=== PATIENT | female | born 1935 | race Caucasian/White ===

== ENCOUNTER → 2018-03-21 | Outpatient (CLI) | payer MEDICARE, OTHER ==
[~2018-03-21] MED LIST: Advil200 M1 PO; CIPR500 PO; Esgic Tablet1 EACH PO; HYDR1TAB94 PO; METR500 PO; OMEP20ER PO; PROM25 PO; Pravachol40 MG PO; SERT50; SERT50 PO; [UNRECOGNIZED DRUG - REMARK]
[2018-03-21 12:26] LABS: Adenovirus F 40/41 Not Detected (NOT DETECT); Astrovirus Not Detected (NOT DETECT); Campylobacter Sp Not Detected (NOT DETECT); Cryptosporidium Not Detected (NOT DETECT); Cyclospora Cayetanensis Not Detected (NOT DETECT); E. Coli O157 Not Detected (NOT DETECT); Entamoeba Histolytica Not Detected (NOT DETECT); Enteroaggregative E. coli-EAEC Not Detected (NOT DETECT); Enteropathogenic E. coli-EPEC Not Detected (NOT DETECT); Enterotoxigenic E. coli-ETEC Not Detected (NOT DETECT); Giardia Lamblia Not Detected (NOT DETECT); Norovirus GI/GII Not Detected (NOT DETECT); Plesiomonas Shigelloides Not Detected (NOT DETECT); Rotavirus A Not Detected (NOT DETECT); Salmonella Sp Not Detected (NOT DETECT); Sapovirus Not Detected (NOT DETECT); Shiga Toxin-prod E. coli-STEC Not Detected (NOT DETECT); Shigella/Enteroin E. coli-EIEC Not Detected (NOT DETECT); Vibrio Cholerae Not Detected (NOT DETECT); Vibrio Sp Not Detected (NOT DETECT); Yersinia Enterocolitica Not Detected (NOT DETECT)
== END | disposition home or self-care (01) ==
LOC: LAB EV 08:50
PROVIDERS: Student in an Organized Health Care Education/Training Program
DX: K52.9 Noninfective gastroenteritis and colitis, unspecified (principal); Z85.038 Personal history of other malignant neoplasm of large intestine
CPT/HCPCS: 87507

== ENCOUNTER → 2018-09-16 | Outpatient (CLI) | payer MEDICARE, OTHER ==
[~2018-09-16] MED LIST changes: +Pravastatin Sod40 MG PO
[2018-09-16 14:49] LABS: BASOPHILS ABSOLUTE AUTO 0.03 K/mm3 (0.00-0.23); BASOPHILS PERCENT AUTO 1 % (0-2); EOSINOPHILS ABSOLUTE AUTO 0.13 K/mm3 (0.00-0.68); EOSINOPHILS PERCENT AUTO 2 % (0-6); Hematocrit 40.5 % (33.0-51.0); Hemoglobin 13.5 g/dL (11.5-16.0); IMMATURE GRAN ABSOLUTE AUTO 0.02 K/mm3 (0.00-0.10); IMMATURE GRAN PERCENT AUTO 0 % (0-1); LYMPHOCYTES ABSOLUTE AUTO 2.03 K/mm3 (0.84-5.20); LYMPHOCYTES PERCENT AUTO 34 % (21-46); MONOCYTES ABSOLUTE AUTO 0.71 K/mm3 (0.16-1.47); MONOCYTES PERCENT AUTO 12 % (4-13); Mean Corpuscular HGB 29.8 pg (26.0-34.0); Mean Corpuscular HGB Conc 33.3 g/dL (31.5-36.5); Mean Corpuscular Volume 89 fL (80-100); Mean Platelet Volume 10.3 fL (9.1-12.4); NEUTROPHILS ABSOLUTE AUTO 3.05 K/mm3 (1.96-9.15); NEUTROPHILS PERCENT AUTO 51 % (41-73); Platelet Count 264 K/mm3 (150-400); RDW Standard Deviation 42.5 fL (35.1-46.3); Red Blood Cell Count 4.53 M/mm3 (3.80-5.20); White Blood Cell Count 5.97 K/mm3 (4.00-11.30)
[2018-09-16 14:56] LABS: Bun/Creatinine Ratio 11.8 (12.0-20.0); Calcium, Blood 8.9 mg/dL (8.5-10.1); Creatinine, Blood 1.02 mg/dL (0.40-1.00); Potassium, Blood 4.4 mmol/L (3.5-5.5)
[2018-09-16 16:57] LABS: Albumin, Blood 3.1 g/dL (3.4-5.0); Albumin/Globulin Ratio 0.8 (0.8-1.8); Bilirubin, Total 0.5 mg/dL (0.1-1.0); Total Protein, Blood 7.1 g/dL (6.4-8.2)
== END | disposition home or self-care (01) ==
LOC: LAB SHORT 14:46 → LAB EV 14:46
PROVIDERS: Physician Assistant
DX: R10.31 Right lower quadrant pain (principal); D72.829 Elevated white blood cell count, unspecified; R82.79 Other abnormal findings on microbiological examination of urine
CPT/HCPCS: 80053; 85025; 87086

== ENCOUNTER → 2018-10-07 | Outpatient (CLI) | payer MEDICARE, OTHER ==
[2018-10-07 12:08] LABS: BASOPHILS ABSOLUTE AUTO 0.04 K/mm3 (0.00-0.23); BASOPHILS PERCENT AUTO 1 % (0-2); EOSINOPHILS ABSOLUTE AUTO 0.13 K/mm3 (0.00-0.68); EOSINOPHILS PERCENT AUTO 3 % (0-6); Hematocrit 40.3 % (33.0-51.0); Hemoglobin 13.2 g/dL (11.5-16.0); IMMATURE GRAN ABSOLUTE AUTO 0.02 K/mm3 (0.00-0.10); IMMATURE GRAN PERCENT AUTO 0 % (0-1); LYMPHOCYTES PERCENT AUTO 31 % (21-46); MONOCYTES ABSOLUTE AUTO 0.58 K/mm3 (0.16-1.47); MONOCYTES PERCENT AUTO 12 % (4-13); Mean Corpuscular HGB 29.1 pg (26.0-34.0); Mean Corpuscular HGB Conc 32.8 g/dL (31.5-36.5); Mean Corpuscular Volume 89 fL (80-100); Mean Platelet Volume 10.5 fL (9.1-12.4); NEUTROPHILS ABSOLUTE AUTO 2.51 K/mm3 (1.96-9.15); NEUTROPHILS PERCENT AUTO 53 % (41-73); Platelet Count 256 K/mm3 (150-400); RDW Coefficient Variation 12.6 % (11.7-14.2); RDW Standard Deviation 41.1 fL (35.1-46.3); Red Blood Cell Count 4.54 M/mm3 (3.80-5.20); White Blood Cell Count 4.78 K/mm3 (4.00-11.30)
[2018-10-07 12:40] LABS: Alanine Aminotransfer (ALT/SGP 13 U/L (12-78); Albumin, Blood 3.3 g/dL (3.4-5.0); Albumin/Globulin Ratio 0.8 (0.8-1.8); Alk Phos 82 U/L (40-126); Anion Gap 9 mmol/L (6-16); Aspartate Aminotrans (AST/SGOT 18 U/L (12-37); Bilirubin, Total 0.4 mg/dL (0.1-1.0); Blood Urea Nitrogen 10 mg/dL (8-24); Bun/Creatinine Ratio 21.7 (12.0-20.0); CO2, Blood 24 mmol/L (21-32); Calcium, Blood 8.6 mg/dL (8.5-10.1); Chloride, Blood 104 mmol/L (98-108); Creatinine, Blood 0.46 mg/dL (0.40-1.00); Globulin, Blood 3.9 g/dL (2.2-4.0); Glomerular Filtration Rate >60 (60-); Glucose, Blood 87 mg/dL (70-99); Potassium, Blood 4.3 mmol/L (3.5-5.5); Sodium, Blood 137 mmol/L (136-145); Total Protein, Blood 7.2 g/dL (6.4-8.2)
== END ==
LOC: LAB EV 12:03 → LAB SHORT 12:03
PROVIDERS: Emergency Medicine
DX: R10.9 Unspecified abdominal pain (principal); N39.0 Urinary tract infection, site not specified
CPT/HCPCS: 80053; 85025; 87086

== ENCOUNTER 2019-01-28 13:02 | Day surgery (SDC) | payer MEDICARE, OTHER ==
[~2019-01-28] VITALS: Ht 152.4 cm; Wt 51.7 kg
== END 2019-01-28 16:52 | disposition home or self-care (01) ==
LOC: ORSCSDS 13:02
DX: K21.0 Gastro-esophageal reflux disease with esophagitis (principal); R19.7 Diarrhea, unspecified; R11.2 Nausea with vomiting, unspecified; Z85.038 Personal history of other malignant neoplasm of large intestine; R63.4 Abnormal weight loss; E78.5 Hyperlipidemia, unspecified; K57.30 Diverticulosis of large intestine without perforation or abscess without bleeding; K64.8 Other hemorrhoids
CPT/HCPCS: 88305; 88312; J2405; J2704; J7120

== ENCOUNTER 2019-02-12 05:31 | Inpatient (IN) | payer MEDICARE, OTHER ==
[~2019-02-12] VITALS: Ht 152.4 cm; Wt 59.4 kg
[2019-02-12] MEDS ORDERED: OMEPRAZOLE MAGN20 M1 PO (06:02)
[2019-02-12] MEDS ORDERED: PRED20 PO (06:03)
[2019-02-12] MEDS ORDERED: MAGNESIUM400 M1 PO (06:03)
[2019-02-12 06:35] LABS: Source, Urine Clean Catch
[2019-02-12 06:36] LABS: BASOPHILS ABSOLUTE AUTO 0.01 K/mm3 (0.00-0.23); BASOPHILS PERCENT AUTO 0 % (0-2); EOSINOPHILS PERCENT AUTO 0 % (0-6); Hematocrit 41.8 % (33.0-51.0); Hemoglobin 12.8 g/dL (11.5-16.0); IMMATURE GRAN ABSOLUTE AUTO 0.04 K/mm3 (0.00-0.10); IMMATURE GRAN PERCENT AUTO 0 % (0-1); LYMPHOCYTES ABSOLUTE AUTO 1.14 K/mm3 (0.84-5.20); LYMPHOCYTES PERCENT AUTO 10 % (21-46); MONOCYTES ABSOLUTE AUTO 0.64 K/mm3 (0.16-1.47); MONOCYTES PERCENT AUTO 6 % (4-13); Mean Corpuscular HGB Conc 30.6 g/dL (31.5-36.5); Mean Corpuscular Volume 82 fL (80-100); Mean Platelet Volume 9.9 fL (9.1-12.4); NEUTROPHILS ABSOLUTE AUTO 9.51 K/mm3 (1.96-9.15); NEUTROPHILS PERCENT AUTO 84 % (41-73); Platelet Count 652 K/mm3 (150-400); RDW Standard Deviation 44.8 fL (35.1-46.3); Red Blood Cell Count 5.11 M/mm3 (3.80-5.20); White Blood Cell Count 11.34 K/mm3 (4.00-11.30)
[2019-02-12 06:37] LABS: Blood, Urine 1+ (Neg); Glucose Qualitative, Urine Neg (Neg); Ketones, Urine Neg (Neg); Leukocyte Esterase, Urine 2+ (Neg); Nitrite, Urine Neg (Neg); Protein, Urine 2+ (Neg); Specific Gravity, Urine 1.025 (1.003-1.022); Urobilinogen, Urine NORM (Normal)
[2019-02-12 06:48] LABS: Appearance, Urine Hazy (Clear); Bilirubin, Urine 1+ (Neg); Color, Urine Yellow (P-Yellow)
[2019-02-12 06:51] LABS: Alanine Aminotransfer (ALT/SGP 19 U/L (12-78); Albumin, Blood 2.8 g/dL (3.4-5.0); Albumin/Globulin Ratio 0.7 (0.8-1.8); Alk Phos 66 U/L (50-136); Anion Gap 6 mmol/L (6-16); Aspartate Aminotrans (AST/SGOT 12 U/L (12-37); Bilirubin, Total 0.3 mg/dL (0.1-1.0); Blood Urea Nitrogen 30 mg/dL (8-24); CO2, Blood 31 mmol/L (21-32); Calcium, Blood 8.9 mg/dL (8.5-10.1); Chloride, Blood 104 mmol/L (98-108); Creatinine, Blood 0.63 mg/dL (0.40-1.00); Globulin, Blood 4.2 g/dL (2.2-4.0); Glomerular Filtration Rate >60 (60-); Glucose, Blood 138 mg/dL (70-99); Potassium, Blood 2.7 mmol/L (3.5-5.5); Sodium, Blood 141 mmol/L (136-145); Troponin I <0.015 ng/mL (0.000-0.040)
[2019-02-12 06:52] LABS: Bacteria Few /hpf; Red Blood Cells, Urine 0-2 /hpf (0-2); Squamous Epithelial Cells Few /hpf (Few)
[2019-02-12 06:53] LABS: Calcium Oxalate Crystals Many /hpf; Transitional Epithelial Cells Rare /hpf (0-Rare)
--- NOTE | 2019-02-12 10:20 | NUR ---
ADVISED PATIENT CAN NOT TAKE P.O. PILLS AT THIS TIME SHE FEELS LIKE SHE WILL VOMIT THEM. PER DR. CORCORAN DILAUDID 0.2MG IV ONCE.STS GI TO SEE. ORDER PLACED AND RN WILL CALL.
--- NOTE | 2019-02-12 10:41 | NUR ---
ADVISED US WAS DONE AND PER TECH PROBABLY NOT ENOUGH FOR THERAPEUTIC PARA, BUT COULD DO DIAGNOSTIC. STS WILL THINK ABOUT IT. NO NEW ORDERS.
--- NOTE | 2019-02-12 16:13 | NUR ---
ADMITTED TO ROOM THIS MORNING. ALERT AND ORIENTED. USUALLY UNABLE TO GET TO BSC DUE TO DIARRHEA. INITIALLY C/O BACK AND ABD PAIN AND SAID COULD NOT TAKE ANY PILLS BECAUSE THOUGHT SHE WOULD VOMIT THEM. MEDS CHANGED TO IV DILAUDID ONCE AND HAS NOT ASKED FOR IT AT THIS TIME. MEDICATED ONCE FOR NAUSEA. HAS HAD NO VOMITING ON THIS FLOOR. PLEASANT. BED IN LOW POSITION. IV'S X 2 PATENT. AWAITING . HAS HAD EGD AND COLONOSCOPY PRIOR TO ADMIT. ABLE TO MAKE NEEDS KNOWN. UNLABORED RESPIRATIONS. WCTM.
[2019-02-13 04:57] LABS: BASOPHILS ABSOLUTE AUTO 0.01 K/mm3 (0.00-0.23); BASOPHILS PERCENT AUTO 0 % (0-2); EOSINOPHILS PERCENT AUTO 1 % (0-6); Hematocrit 32.7 % (33.0-51.0); Hemoglobin 9.8 g/dL (11.5-16.0); IMMATURE GRAN ABSOLUTE AUTO 0.03 K/mm3 (0.00-0.10); IMMATURE GRAN PERCENT AUTO 0 % (0-1); LYMPHOCYTES ABSOLUTE AUTO 1.73 K/mm3 (0.84-5.20); LYMPHOCYTES PERCENT AUTO 21 % (21-46); MONOCYTES ABSOLUTE AUTO 0.82 K/mm3 (0.16-1.47); MONOCYTES PERCENT AUTO 10 % (4-13); Mean Corpuscular HGB 24.6 pg (26.0-34.0); Mean Corpuscular Volume 82 fL (80-100); Mean Platelet Volume 9.9 fL (9.1-12.4); NEUTROPHILS ABSOLUTE AUTO 5.47 K/mm3 (1.96-9.15); NEUTROPHILS PERCENT AUTO 67 % (41-73); Platelet Count 492 K/mm3 (150-400); RDW Coefficient Variation 15.3 % (11.7-14.2); RDW Standard Deviation 45.7 fL (35.1-46.3); Red Blood Cell Count 3.98 M/mm3 (3.80-5.20); White Blood Cell Count 8.16 K/mm3 (4.00-11.30)
[2019-02-13 05:23] LABS: Alanine Aminotransfer (ALT/SGP 13 U/L (12-78); Albumin, Blood 2.1 g/dL (3.4-5.0); Albumin/Globulin Ratio 0.7 (0.8-1.8); Alk Phos 46 U/L (50-136); Anion Gap 3 mmol/L (6-16); Aspartate Aminotrans (AST/SGOT 9 U/L (12-37); Bilirubin, Total 0.4 mg/dL (0.1-1.0); Blood Urea Nitrogen 21 mg/dL (8-24); Bun/Creatinine Ratio 32.5 (12.0-20.0); CO2, Blood 29 mmol/L (21-32); Calcium, Blood 8.1 mg/dL (8.5-10.1); Chloride, Blood 114 mmol/L (98-108); Creatinine, Blood 0.65 mg/dL (0.40-1.00); Globulin, Blood 3.2 g/dL (2.2-4.0); Glomerular Filtration Rate >60 (60-); Glucose, Blood 86 mg/dL (70-99); Potassium, Blood 3.7 mmol/L (3.5-5.5); Sodium, Blood 146 mmol/L (136-145); Total Protein, Blood 5.3 g/dL (6.4-8.2)
--- NOTE | 2019-02-13 05:45 | NUR ---
PT DIDN'T COMPLAIN OF ANY ABDOMINAL PAIN OR DISCOMFORT. NO REPORTED NAUSEA OR VOMITTING. PT SLEPT MOST OF THE NIGHT. NO OTHER COMPLAINTS AT THIS TIME. BOTH IV'S REMAIN PATENT AND RUNNING WITH THE ORDERED MEDICATIONS. VSS. WILL CONTINUE TO MONITOR.
[2019-02-13 10:32] LABS: International Normalized Ratio 1.03; Prothrombin Time Results 10.9 Sec (9.7-11.5)
--- NOTE | 2019-02-13 14:46 | NUR ---
PT TO IMAGING FOR U/S GUIDED PARACENTESIS.
--- NOTE | 2019-02-13 16:06 | NUR ---
PT BACK FROM PARACENTESIS PT DENIES ANY PAIN AT THIS TIME.
[2019-02-13 16:15] LABS: Automated BF WBC Count 0.227 K/mm3 (0-999); Body Fluid WBC Count 227 /mm3 (0-999)
[2019-02-13 16:28] LABS: Albumin, Body Fluid 2.1 g/dL; Lactate Dehydrogenase, Body Fl 111 U/L; Protein, Body Fluid 3.9 g/dL
[2019-02-13 16:33] LABS: RBC Count, Body Fluid 647 /mm3 (0-0)
--- NOTE | 2019-02-13 16:37 | NUR ---
SHIFT SUMMARY- PT A/OX4, SBA UP TO BSC. PT MEDICATED X2 FOR RIGHT BACK AROUND TO RIGHT ABD PAIN, PT DENIES ANY PAIN AFTER DOSE OF ROXICODONE. PT REPORTS INTERMITTENT NAUSEA THAT LASTS ONLY A FEW MINUTES, DENIES NEED FOR ANTIEMETICS. PT CONT TO HAVE LIQUID STOOLS, PT REPORTS THIS HAS BEEN CHRONIC IN NATURE SINCE COLECTOMY, NO BLOOD NOTED. PT TOLERATING CLEAR LIQUID DIET. LS CLEAR, ON RA. HRR. PARACENTESIS COMPLETED THIS AFTERNOON. PT UP TO BSC AND VOIDS FEQUENTLY BUT LITTLE OUTPUT, POST VOID BLADDER SCAN OF 132 THIS AFTERNOON. NO OTHER ACUTE CHANGES THIS SHIFT.
[2019-02-13 16:57] LABS: Appearance, Body Fluid Hazy (Clear); Color, Body Fluid L Yellow (None-Yellow); Total Cell Count, Body Fluid 100
--- NOTE | 2019-02-13 18:29 | NUR ---
DR COLIN IN TO SEE PT. PER DR COLIN STOP PROTONIX GTT AND START ON OMPERAZOLE 20MG PO BID. PT OK TO ADVANCE DIET, FULL LIQUID ORDERED. PER DR COLIN FROM A GI STANDPOINT PT CAN D/C HOME TOMORROW. PER DR COLIN HE WILL CALL DR CORCORAN WITH UPDATE.
--- NOTE | 2019-02-13 19:28 | NUR ---
1914 OXYGEN SATURATION READ 89%. IT IS THOUGHT TO BE BECAUSE OF PT'S NAIL [place]. UPON RECHECK THE PT'S OXYGEN WAS 91% ON RA. WILL CONTINUE TO MONITOR PT.
--- NOTE | 2019-02-14 04:14 | NUR ---
SHIFT SUMMARY PT COMPLAINED OF NAUSEA AT THE BEGINNING OF THE SHIFT. ZOFRAN WAS GIVEN TO GOOD EFFECT. PT CONTINUES TO HAVE DIARRHEA, BUT TOLERATING THE FULL LIQUID DIET WELL. NO COMPLAINS OF PAIN THIS SHIFT. WILL CONTINUE TO MONITOR.
[2019-02-14 05:29] LABS: BASOPHILS ABSOLUTE AUTO 0.01 K/mm3 (0.00-0.23); BASOPHILS PERCENT AUTO 0 % (0-2); EOSINOPHILS PERCENT AUTO 3 % (0-6); Hematocrit 33.8 % (33.0-51.0); Hemoglobin 10.3 g/dL (11.5-16.0); IMMATURE GRAN ABSOLUTE AUTO 0.03 K/mm3 (0.00-0.10); IMMATURE GRAN PERCENT AUTO 0 % (0-1); LYMPHOCYTES ABSOLUTE AUTO 2.07 K/mm3 (0.84-5.20); LYMPHOCYTES PERCENT AUTO 28 % (21-46); MONOCYTES PERCENT AUTO 10 % (4-13); Mean Corpuscular HGB 25.5 pg (26.0-34.0); Mean Corpuscular HGB Conc 30.5 g/dL (31.5-36.5); Mean Corpuscular Volume 84 fL (80-100); Mean Platelet Volume 10.1 fL (9.1-12.4); NEUTROPHILS ABSOLUTE AUTO 4.32 K/mm3 (1.96-9.15); NEUTROPHILS PERCENT AUTO 59 % (41-73); Platelet Count 467 K/mm3 (150-400); RDW Coefficient Variation 15.2 % (11.7-14.2); RDW Standard Deviation 46.2 fL (35.1-46.3); Red Blood Cell Count 4.04 M/mm3 (3.80-5.20); White Blood Cell Count 7.33 K/mm3 (4.00-11.30)
[2019-02-14 05:50] LABS: Alanine Aminotransfer (ALT/SGP 12 U/L (12-78); Albumin, Blood 1.9 g/dL (3.4-5.0); Albumin/Globulin Ratio 0.6 (0.8-1.8); Alk Phos 44 U/L (50-136); Anion Gap 5 mmol/L (6-16); Aspartate Aminotrans (AST/SGOT 11 U/L (12-37); Bilirubin, Total 0.3 mg/dL (0.1-1.0); Blood Urea Nitrogen 11 mg/dL (8-24); Bun/Creatinine Ratio 17.6 (12.0-20.0); CO2, Blood 28 mmol/L (21-32); Calcium, Blood 7.6 mg/dL (8.5-10.1); Chloride, Blood 109 mmol/L (98-108); Creatinine, Blood 0.62 mg/dL (0.40-1.00); Globulin, Blood 3.1 g/dL (2.2-4.0); Glomerular Filtration Rate >60 (60-); Glucose, Blood 82 mg/dL (70-99); Potassium, Blood 2.9 mmol/L (3.5-5.5); Sodium, Blood 142 mmol/L (136-145)
[2019-02-14 11:11] LABS: Performing Lab SYMBIODX; Test Name FLOW CYTOMETRY
--- NOTE | 2019-02-14 17:32 | NUR ---
SHIFT SUMMARY PT AXO, PLEASANT AND COOPERATIVE WITH CARE. PT UP TO BSC WITH SBA. VS STABLE. PT MEDICATED ONCE FOR PAIN. PT STARTED ON MEDICATION TO INCREASE APPETITE, PT STATES THAT SHE HAS INCREASED APPETITE ALREADY. PT ATE ABOUT 30% OF LUNCH. PT NPO AT THIS TIME DRINKING ONLY ORAL CONTRAST FOR CT TONIGHT. BED IN LOW POSITION, CALL LIGHT WITHIN REACH. PT CONTINUES TO HAVE LIQUID STOOL BMS THIS SHIFT X1 THIS SHIFT. NO OTHER CHANGES THIS SHIFT. IV PATENT AND INFUSING PER EMAR AT THIS TIME
--- NOTE | 2019-02-15 04:39 | NUR ---
SHIFT SUMMARY PT HAD CT WITH CONTRAST DURING EARLIER PART OF SHIFT. SHE HAS BEEN ON CLEAR LIQUIDS DURING MOST OF HER ADMISSION, AND STARTED A REGULAR DIET AFTER HER CT SCAN YESTERDAY EVENING. PT DID NOT TOLERATE HER DINNER, AND HAD ADB PAIN AND NAUSEA SHORTLY AFTER FINISHING. PT HAD 200 CC OF PALE YELLOW EMESIS AROUND 0200. PT ALSO HAD ABD PAIN FOR A GOOD MAJORITY OF THE NIGHT. MEDICATED WITH ROXICODONE FOR PAIN AND ZOFRAN FOR NAUSEA. NS INFUSING ORDERED. PT 1 PA TO THE BATHROOM, OCCASIONALLY INCONTINENT. NO LOOSE STOOLS THIS SHIFT. NO OTHER CHANGES TO REPORT. WILL CONTINUE TO MONITOR AND REPORT TO ONCOMING RN.
[2019-02-15 18:30] LABS: Result SEE LABOUT RESULTS
--- NOTE | 2019-02-15 19:22 | NUR ---
SHIFT SUMMARY- PT DENIES N/V. DENIES SOB. RESP E/U ON RA. PT TO HAVE WATER AND ICE CHIPS ONLY AFTER 2300 AND BE NPO AT 0600 TOMORROW FOR EGD AND SCOPE. NOTIFIED MORENO RN. LET NOC RN KNOW THERE IS A NURSE NOTIFY WITH BOWEL PREP INSTUCTIONS FROM DR. COLIN FOR TOMORROW TO BE DONE BEFORE 7AM. PCU BITUMINOUS PAVING MACHINE OPERATOR REPORTS PT'S HR SPIKED TO 130. PT REPORTS SHE WAS MOVING AROUND IN BED. SINUS TACH WITH PVC'S AT 116 PER PCU BITUMINOUS PAVING MACHINE OPERATOR THIS PM. PT REPORTS SHE IS HAVING LOWER BACK AND ABD PAIN. MEDS GIVEN PER EMAR. PT SLEEPING THIS PM. INDEPENDENT TO THE BSC. SBA WITH FWW FOR FURTHER DISTANCES. NO OTHER SIGNIFICANT CHANGES THIS SHIFT.
[2019-02-16 04:43] LABS: BASOPHILS ABSOLUTE AUTO 0.02 K/mm3 (0.00-0.23); BASOPHILS PERCENT AUTO 0 % (0-2); EOSINOPHILS ABSOLUTE AUTO 0.12 K/mm3 (0.00-0.68); EOSINOPHILS PERCENT AUTO 1 % (0-6); Hematocrit 38.2 % (33.0-51.0); Hemoglobin 11.6 g/dL (11.5-16.0); IMMATURE GRAN ABSOLUTE AUTO 0.04 K/mm3 (0.00-0.10); IMMATURE GRAN PERCENT AUTO 1 % (0-1); LYMPHOCYTES ABSOLUTE AUTO 1.53 K/mm3 (0.84-5.20); LYMPHOCYTES PERCENT AUTO 17 % (21-46); MONOCYTES ABSOLUTE AUTO 0.95 K/mm3 (0.16-1.47); MONOCYTES PERCENT AUTO 11 % (4-13); Mean Corpuscular HGB 24.8 pg (26.0-34.0); Mean Corpuscular HGB Conc 30.4 g/dL (31.5-36.5); Mean Corpuscular Volume 82 fL (80-100); Mean Platelet Volume 9.8 fL (9.1-12.4); NEUTROPHILS ABSOLUTE AUTO 6.18 K/mm3 (1.96-9.15); NEUTROPHILS PERCENT AUTO 70 % (41-73); Platelet Count 418 K/mm3 (150-400); RDW Coefficient Variation 15.5 % (11.7-14.2); RDW Standard Deviation 45.7 fL (35.1-46.3); Red Blood Cell Count 4.68 M/mm3 (3.80-5.20); White Blood Cell Count 8.84 K/mm3 (4.00-11.30)
[2019-02-16 05:05] LABS: Magnesium, Blood 1.7 mg/dL (1.6-2.4); Troponin I <0.015 ng/mL (0.000-0.040)
[2019-02-16 05:06] LABS: Alanine Aminotransfer (ALT/SGP 8 U/L (12-78); Albumin, Blood 1.9 g/dL (3.4-5.0); Albumin/Globulin Ratio 0.6 (0.8-1.8); Alk Phos 46 U/L (50-136); Anion Gap 4 mmol/L (6-16); Aspartate Aminotrans (AST/SGOT 6 U/L (12-37); Bilirubin, Total 0.5 mg/dL (0.1-1.0); Blood Urea Nitrogen 7 mg/dL (8-24); Bun/Creatinine Ratio 10.6 (12.0-20.0); CO2, Blood 28 mmol/L (21-32); Chloride, Blood 109 mmol/L (98-108); Creatinine, Blood 0.66 mg/dL (0.40-1.00); Globulin, Blood 3.3 g/dL (2.2-4.0); Glomerular Filtration Rate >60 (60-); Glucose, Blood 104 mg/dL (70-99); Potassium, Blood 3.6 mmol/L (3.5-5.5); Sodium, Blood 141 mmol/L (136-145); Total Protein, Blood 5.2 g/dL (6.4-8.2)
--- NOTE | 2019-02-16 05:45 | NUR ---
SHIFT SUMMARY A/O, ABLE TO MAKE NEEDS KNOWN. COOPERATIVE WITH CARE. CALLS AND ANSWERS QUESTIONS APPROPRIATELY. C/O PAIN/DISCOMFORT TO ABDOMEN; ALTHOUGH CHRONIC CONDITION, MEDICATED PER EMAR. CONTINUED WITH CLEAR LIQUID DIET; WILL BE NPO @ 0600 PENDING PROCEDURE. UP TO BSC; FEELS THAT SHE CAN COMPLETE THIS TASK ON HER OWN. TELE RUNNING SINUS TACH @ 103 WITH PVC AND PAC. NO ACUTE CHANGES OVERNIGHT. ALTHOUGH DID NOT SLEEP MUCH. BED REMAINED IN LOWEST POSITION. CALL LIGHT AND BELONGINGS WITHIN REACH. WCTM. REPORT TO ONCDEVIN RN.
--- NOTE | 2019-02-16 07:33 | NUR ---
LATE ENTRY 0635 TAP WATER ENEMA X1 INSTILLED ABOUT 450 ML OF WATER; LEAKAGE. UNABLE TO FULLY HOLD IN FLUID. UP TO BSC WITH A SMALL/MEDIUM BM.
--- NOTE | 2019-02-16 08:30 | NUR ---
2ND SOAP SUDS ENEMA COMPLETED. CLEAR WATERY BM WITH SOME BROWNISH SEDIMENT NOTED. PT TRANSPORTED TO ENDOSCOPY VIA STRETCHER ACCOMPANIED BY HIRO AND IN NO ACUTE DISTRESS.
--- NOTE | 2019-02-16 08:42 | NUR ---
INTO SDS VSS ADMISSION TO UNIT STARTED
--- NOTE | 2019-02-16 10:17 | NUR ---
RETURNED FROM ENDO VIA STRETCHER ACCOMPANIED BY LAURENCE BOSCH; AWAKE ALERT C/O ABDOMINAL PAIN. SPOUSE AT BEDSIDE, POST OP VITALS IN PROGRESS; DR. COLIN AT BEDSIDE SPEAKING WITH PT AND AWARE OF ALL ABOVE.
--- NOTE | 2019-02-16 14:10 | NUR ---
AWAITING K+ FROM PHARMACY CALLED TO CONFIRM REQUEST RECEIVED SPOKE WITH FITO.
--- NOTE | 2019-02-16 18:28 | NUR ---
SHIFT SUMMARY OX3. STANDBY ASSIST TO BEDSIDE COMMODE. PILLS WHOLE WITH PUDDING. EGD/COLONOSCOPY TODAY. C/O ACUTE ON CHRONIC ABDOMINAL PAIN AND INTERMITTENT NAUSEA MEDICATED EFFECTIVELY PER SEE EMAR. TACHYCARDIA 110'S-120'S DR. MEI AWARE. HX COLON CA. LIVES AT HOME WITH SPOUSE.
--- NOTE | 2019-02-17 06:31 | NUR ---
SHIFT SUMMARY PT C/O PAIN IN BACK AND MEDICATED PER EMAR AND THIS WAS ABLE TO RELIEVE HER PAIN. PER HOT END OPERATOR SHE WAS SINUS TACH 130 AT 1945 THEN LATER TELE CALLED AND SAID SHE HAD 8 SECOND RUN OF SVT THEN BACK TO SINUS TACH 126. NOTIFIED DR CHANDLER OF HR IN 120'S AND SHE ORDERED METOPROLOL 12.5 OT PO. TELE SHOWED AT 0400 NSR @ 92 PER HOT END OPERATOR. SBA TO BSC STILL REPORTING LOOSE STOOLS. 2L O2 NC. SHE WAS ABLE TO SLEEP T/O NIGHT.
--- NOTE | 2019-02-17 17:21 | NUR ---
SHIFT SUMMARY. A&OX4, 1 ASSIST TO BSC. PT DENIES SOB. PT C/O CHRONIC BACK PAIN TWICE THIS SHIFT, MANAGED WELL WITH CURRENT ORDERS. PT DENIED NAUSEA MOST OF THE SHIFT UNTIL JUST RECENTLY SHE HAD VOMITTED, PRN ZOFRAN GIVEN. NO HEMATEMESIS. NO OTHER CHANGES OR CONCERNS.
[2019-02-18 05:00] LABS: BASOPHILS ABSOLUTE AUTO 0.04 K/mm3 (0.00-0.23); BASOPHILS PERCENT AUTO 0 % (0-2); EOSINOPHILS ABSOLUTE AUTO 0.17 K/mm3 (0.00-0.68); EOSINOPHILS PERCENT AUTO 1 % (0-6); Hematocrit 37.8 % (33.0-51.0); Hemoglobin 11.5 g/dL (11.5-16.0); IMMATURE GRAN ABSOLUTE AUTO 0.07 K/mm3 (0.00-0.10); IMMATURE GRAN PERCENT AUTO 1 % (0-1); LYMPHOCYTES ABSOLUTE AUTO 1.71 K/mm3 (0.84-5.20); LYMPHOCYTES PERCENT AUTO 14 % (21-46); MONOCYTES ABSOLUTE AUTO 1.22 K/mm3 (0.16-1.47); MONOCYTES PERCENT AUTO 10 % (4-13); Mean Corpuscular HGB 25.4 pg (26.0-34.0); Mean Corpuscular HGB Conc 30.4 g/dL (31.5-36.5); Mean Corpuscular Volume 84 fL (80-100); Mean Platelet Volume 10.1 fL (9.1-12.4); NEUTROPHILS PERCENT AUTO 75 % (41-73); Platelet Count 448 K/mm3 (150-400); RDW Coefficient Variation 15.9 % (11.7-14.2); RDW Standard Deviation 48.6 fL (35.1-46.3); Red Blood Cell Count 4.52 M/mm3 (3.80-5.20); White Blood Cell Count 12.71 K/mm3 (4.00-11.30)
[2019-02-18 05:12] LABS: Albumin, Blood 1.9 g/dL (3.4-5.0); Anion Gap 6 mmol/L (6-16); Blood Urea Nitrogen 8 mg/dL (8-24); Bun/Creatinine Ratio 12.3 (12.0-20.0); CO2, Blood 24 mmol/L (21-32); Calcium, Blood 8.4 mg/dL (8.5-10.1); Chloride, Blood 112 mmol/L (98-108); Creatinine, Blood 0.65 mg/dL (0.40-1.00); Glomerular Filtration Rate >60 (60-); Glucose, Blood 147 mg/dL (70-99); Magnesium, Blood 1.6 mg/dL (1.6-2.4); Phosphorus, Blood 1.6 mg/dL (2.5-4.9); Potassium, Blood 4.4 mmol/L (3.5-5.5); Sodium, Blood 142 mmol/L (136-145)
--- NOTE | 2019-02-18 07:12 | NUR ---
SHIFT SUMMARY C/O PAIN AND NAUSEA AND MEDICATED PER EMAR. INCONT OF URINE AND STILL HAVING BLACK STOOLS. SINUS TACH 132 PER FUNDRAISING SPECIALIST AND BP 168/96 MARCIA HARVEST WORKER FIELD CROP ORDERED OT IV LABETALOL. HR CAME DOWN TO SINUS TACH 112 AND BP 138/84. SHE WAS ABLE TO SLEEP T/O NIGHT ON AND OFF. CALL LIGHT IN REACH.
--- NOTE | 2019-02-18 11:45 | NUR ---
ASSUMED CARE: PT RESTING QUIETLY IN BED. FAMILY AT BEDSIDE. NO ACUTE NEEDS OR CONCERNS
--- NOTE | 2019-02-18 13:31 | NUR ---
DR WOODALL PLACED ORDERS FOR PARACENTESIS. NOTIFIED THAT THIS IS DONE VIA ULTRA SOUND, ORDER PLACED. ALSO DISCUSSED WITH DR THAT PT'S HR HAS BEEN ELEVATED FOR "AWHILE" PER REPORT AND PER MICROFILM OPERATOR. SEE NEW ORDERS
--- NOTE | 2019-02-18 17:49 | NUR ---
SHIFT SUMMARY: PLAN IS FOR PT TO HAVE PARACENTESIS TOMORROW AFTERNOON, 24 HOURS AFTER LAST LOVENOX DOSE. MEDICATED X1 FOR PAIN. FAMILY AT BEDSIDE OFF AND ON THIS SHIFT. NO ACUTE NEEDS OR CONCERNS NOTED
[2019-02-19 05:41] LABS: BASOPHILS ABSOLUTE AUTO 0.03 K/mm3 (0.00-0.23); BASOPHILS PERCENT AUTO 0 % (0-2); EOSINOPHILS ABSOLUTE AUTO 0.14 K/mm3 (0.00-0.68); EOSINOPHILS PERCENT AUTO 1 % (0-6); Hematocrit 38.3 % (33.0-51.0); Hemoglobin 11.5 g/dL (11.5-16.0); IMMATURE GRAN ABSOLUTE AUTO 0.05 K/mm3 (0.00-0.10); IMMATURE GRAN PERCENT AUTO 0 % (0-1); LYMPHOCYTES ABSOLUTE AUTO 1.76 K/mm3 (0.84-5.20); LYMPHOCYTES PERCENT AUTO 16 % (21-46); MONOCYTES ABSOLUTE AUTO 1.12 K/mm3 (0.16-1.47); MONOCYTES PERCENT AUTO 10 % (4-13); Mean Corpuscular HGB 25.2 pg (26.0-34.0); Mean Corpuscular Volume 84 fL (80-100); Mean Platelet Volume 10.4 fL (9.1-12.4); NEUTROPHILS ABSOLUTE AUTO 8.09 K/mm3 (1.96-9.15); NEUTROPHILS PERCENT AUTO 72 % (41-73); Platelet Count 416 K/mm3 (150-400); RDW Coefficient Variation 16.3 % (11.7-14.2); RDW Standard Deviation 49.5 fL (35.1-46.3); Red Blood Cell Count 4.56 M/mm3 (3.80-5.20); White Blood Cell Count 11.19 K/mm3 (4.00-11.30)
[2019-02-19 06:00] LABS: Anion Gap 8 mmol/L (6-16); Blood Urea Nitrogen 11 mg/dL (8-24); Bun/Creatinine Ratio 14.4 (12.0-20.0); CO2, Blood 22 mmol/L (21-32); Calcium, Blood 8.9 mg/dL (8.5-10.1); Chloride, Blood 110 mmol/L (98-108); Creatinine, Blood 0.77 mg/dL (0.40-1.00); Glomerular Filtration Rate >60 (60-); Glucose, Blood 102 mg/dL (70-99); Phosphorus, Blood 2.2 mg/dL (2.5-4.9); Potassium, Blood 4.4 mmol/L (3.5-5.5); Sodium, Blood 140 mmol/L (136-145)
--- NOTE | 2019-02-19 06:13 | NUR ---
SHIFT SUMMARY: PT IS ALERT AND ORIENTED. PT IS CALM AND COOPERATIVE WITH CARE. PT CALLS APPROPRIATELY. PT IS A STANDBY ASSIST TO THE BSC. PT REPORTS BURNING IN HER [place] AREA, RECEIVED ORDER FROM DR. COLIN FOR NYSTATIN CREAM. PT REPORTS ABD PAIN ON ONE OCCASION, GAVE PRN OXYCODONE. PT DENIES NAUSEA, VOMITING, AND SOB. PT SLEPT INTERMITTENTLY THROUGHOUT THE NIGHT. 0900 LOVENOX HELD FOR PARACENTESIS THIS AM. WILL REPORT TO DAY NURSE.
--- NOTE | 2019-02-19 17:22 | NUR ---
SHIFT SUMMARY: PT A/O X 4 THIS MORNING BUT C/O BEING TIRED AND NOT SLEEPING WELL LAST NIGHT. NIGHT NURSE REPORTS HOLDING LOVENOX FOR POSSIBLE PROCEDURE TODAY. PT TOLERATED MEDS WITH PUDDING PER HER REQUEST BUT DID NOT HAVE AN APPETITE FOR FOOD. PER DR JENNINGS THE BELT NOTCHER VISITED PT THIS SHIFT AND DISCUSSED PPN FOR NUTRITION AND PT WAS AGREEABLE TO TX PLAN. IMAGING PICKED UP PT THIS AFTERNOON FOR AN ULTRASOUND FOLLOWED BY A PARACENTESIS REMOVING APPROX 4.6 L OF FLUID FROM ABDOMEN. PT RETURNED TO ROOM AND REPORTED FEELING MUCH BETTER. PT IS NOW AWAKE AND ALERT VISITING WITH HER FRIENDS/FAMILY. PPN WAS STARTED PER ORDER AND PT IS TOLERATING IT WELL. PT IS ABLE TO MAKE HER NEEDS KNOWN AND USES CALL LIGHT FOR HELP WHEN NEEDED.
--- NOTE | 2019-02-19 18:42 | NUR ---
CONSULT CALLED TO DR MANJU Rodriguez
[2019-02-20 04:56] LABS: BASOPHILS ABSOLUTE AUTO 0.03 K/mm3 (0.00-0.23); BASOPHILS PERCENT AUTO 0 % (0-2); EOSINOPHILS ABSOLUTE AUTO 0.13 K/mm3 (0.00-0.68); EOSINOPHILS PERCENT AUTO 1 % (0-6); Hematocrit 35.1 % (33.0-51.0); Hemoglobin 10.7 g/dL (11.5-16.0); IMMATURE GRAN ABSOLUTE AUTO 0.04 K/mm3 (0.00-0.10); IMMATURE GRAN PERCENT AUTO 0 % (0-1); LYMPHOCYTES ABSOLUTE AUTO 1.33 K/mm3 (0.84-5.20); LYMPHOCYTES PERCENT AUTO 13 % (21-46); MONOCYTES ABSOLUTE AUTO 1.03 K/mm3 (0.16-1.47); MONOCYTES PERCENT AUTO 10 % (4-13); Mean Corpuscular HGB 24.8 pg (26.0-34.0); Mean Corpuscular HGB Conc 30.5 g/dL (31.5-36.5); Mean Platelet Volume 10.6 fL (9.1-12.4); NEUTROPHILS ABSOLUTE AUTO 8.07 K/mm3 (1.96-9.15); NEUTROPHILS PERCENT AUTO 76 % (41-73); Platelet Count 386 K/mm3 (150-400); RDW Coefficient Variation 16.3 % (11.7-14.2); RDW Standard Deviation 47.7 fL (35.1-46.3); Red Blood Cell Count 4.32 M/mm3 (3.80-5.20); White Blood Cell Count 10.63 K/mm3 (4.00-11.30)
[2019-02-20 04:58] LABS: Mean Corpuscular Volume 81 fL (80-100)
--- NOTE | 2019-02-20 04:59 | NUR ---
while being assessed and medicated pt stated that she had changed dr'prema at 0230, that she had cancer, when asked if she wanted her family informed she stated it was not the kind of news you woke someone up to tell, this wish was confirmed when providing pt with am medications
[2019-02-20 05:19] LABS: Alanine Aminotransfer (ALT/SGP 7 U/L (12-78); Albumin, Blood 1.6 g/dL (3.4-5.0); Albumin/Globulin Ratio 0.5 (0.8-1.8); Alk Phos 46 U/L (50-136); Amylase, Blood 25 U/L (25-115); Anion Gap 5 mmol/L (6-16); Aspartate Aminotrans (AST/SGOT 6 U/L (12-37); Bilirubin, Total 0.4 mg/dL (0.1-1.0); Blood Urea Nitrogen 14 mg/dL (8-24); Bun/Creatinine Ratio 20.8 (12.0-20.0); CO2, Blood 26 mmol/L (21-32); Calcium, Blood 8.3 mg/dL (8.5-10.1); Chloride, Blood 107 mmol/L (98-108); Creatinine, Blood 0.67 mg/dL (0.40-1.00); Globulin, Blood 3.1 g/dL (2.2-4.0); Glomerular Filtration Rate >60 (60-); Glucose, Blood 130 mg/dL (70-99); Magnesium, Blood 1.7 mg/dL (1.6-2.4); Phosphorus, Blood 2.9 mg/dL (2.5-4.9); Potassium, Blood 4.3 mmol/L (3.5-5.5); Sodium, Blood 138 mmol/L (136-145); Total Protein, Blood 4.7 g/dL (6.4-8.2); Triglycerides 146 mg/dL (30-160)
--- NOTE | 2019-02-20 07:15 | NUR ---
in to visit during the night, pt declined to have family notified, call light in reach, medicated successfully for pain, saline locked, rm air, bsr given to returning day staff
--- NOTE | 2019-02-20 13:21 | NUR ---
PER DR WOODALL CONSULTS FOR PARACENTESIS CALLED IN TO RADIOLOGY AND TO DR ROSS. SON WAS NOTIFIED AND STATED HE IS STILL WAITING TO HEAR FROM THE SURGEON.
--- NOTE | 2019-02-20 16:59 | NUR ---
SHIFT SUMMARY: PT HAS BEEN A/O X 4 AT BASELINE WITH NO C/O PAIN UNTIL THIS EVENING. SHE CONTINUES ON PPN WITH NO APPETITE. PT HAS BEEN RESTING IN BED ALL DAY WITH MANY VISITORS IN AND OUT OF ROOM ALL DAY. PT DECLINED PHYSICAL THERAPY TODAY. PT CONTINUES TO BE A STAND BY ASSIST TO THE BEDSIDE COMMODE FOR TOILETING. DR WOODALL ORDERED 2 CONSULTS AFTER HER VISIT TODAY AND BOTH WERE CALLED IN. PT IS ABLE TO MAKE HER NEEDS KNOWN AND USES CALL LIGHT FOR HELP WHEN NEEDED.
--- NOTE | 2019-02-20 18:30 | NUR ---
PT SON MORRIS AND HIS HAVE VOICED CONCERNS ABOUT HOW THEY FEEL THERE IS A "GENERAL LACK OF COMMUNICATION" WITH THEM ABOUT THE PATIENT'S PLAN OF CARE. MORRIS IS REQUESTING THAT ALL COMMUNICATION ABOUT THE PATIENT BE SHARED WITH THEM. FAMILY WAS EDUCATED ON HOW THE DOCTORS ROUND AND SEE PATIENTS AT [facility] AND IF THEY WANTED THEY WERE MORE THAN WELCOME TO STAY WITH THE PATIENT IN HER ROOM TO HELP ADVOCATE AND COMMUNICATE WITH MEMBERS OF THE HEALTHCARE TEAM. CHARGE NURSE IS AWARE AND ONCOMING NURSE WILL BE NOTIFIED OF FAMILY DYNAMICS.
--- NOTE | 2019-02-20 20:36 | NUR ---
Pt seen. She is in excruciating pain. She is a little grumpy. was in the room and left; there is a note on the door to have family present if doctors discuss care. Pt admits she is very forgetful, trusts her family making choices. Confirmed note on door is correct.
[2019-02-21 05:09] LABS: BASOPHILS ABSOLUTE AUTO 0.02 K/mm3 (0.00-0.23); BASOPHILS PERCENT AUTO 0 % (0-2); EOSINOPHILS ABSOLUTE AUTO 0.06 K/mm3 (0.00-0.68); EOSINOPHILS PERCENT AUTO 1 % (0-6); Hemoglobin 11.4 g/dL (11.5-16.0); IMMATURE GRAN ABSOLUTE AUTO 0.04 K/mm3 (0.00-0.10); IMMATURE GRAN PERCENT AUTO 0 % (0-1); LYMPHOCYTES ABSOLUTE AUTO 1.28 K/mm3 (0.84-5.20); LYMPHOCYTES PERCENT AUTO 13 % (21-46); MONOCYTES ABSOLUTE AUTO 1.09 K/mm3 (0.16-1.47); MONOCYTES PERCENT AUTO 11 % (4-13); Mean Corpuscular HGB 25.6 pg (26.0-34.0); Mean Corpuscular HGB Conc 31.7 g/dL (31.5-36.5); Mean Corpuscular Volume 81 fL (80-100); Mean Platelet Volume 10.4 fL (9.1-12.4); NEUTROPHILS ABSOLUTE AUTO 7.78 K/mm3 (1.96-9.15); NEUTROPHILS PERCENT AUTO 76 % (41-73); Platelet Count 394 K/mm3 (150-400); RDW Coefficient Variation 16.4 % (11.7-14.2); RDW Standard Deviation 47.8 fL (35.1-46.3); Red Blood Cell Count 4.45 M/mm3 (3.80-5.20); White Blood Cell Count 10.27 K/mm3 (4.00-11.30)
[2019-02-21 05:35] LABS: Alanine Aminotransfer (ALT/SGP 8 U/L (12-78); Albumin, Blood 1.6 g/dL (3.4-5.0); Albumin/Globulin Ratio 0.5 (0.8-1.8); Alk Phos 49 U/L (50-136); Anion Gap 3 mmol/L (6-16); Aspartate Aminotrans (AST/SGOT 7 U/L (12-37); Bilirubin, Total 0.2 mg/dL (0.1-1.0); Blood Urea Nitrogen 19 mg/dL (8-24); Bun/Creatinine Ratio 30.7 (12.0-20.0); CO2, Blood 27 mmol/L (21-32); Calcium, Blood 7.9 mg/dL (8.5-10.1); Chloride, Blood 103 mmol/L (98-108); Creatinine, Blood 0.62 mg/dL (0.40-1.00); Free Thyroxine 0.95 ng/dL (0.70-1.60); Globulin, Blood 3.2 g/dL (2.2-4.0); Glomerular Filtration Rate >60 (60-); Glucose, Blood 127 mg/dL (70-99); Magnesium, Blood 1.9 mg/dL (1.6-2.4); Phosphorus, Blood 3.6 mg/dL (2.5-4.9); Potassium, Blood 4.7 mmol/L (3.5-5.5); Sodium, Blood 133 mmol/L (136-145); Total Protein, Blood 4.8 g/dL (6.4-8.2)
[2019-02-21 05:37] LABS: Triiodothyronine, Free 1.31 pg/mL (2.18-3.98)
--- NOTE | 2019-02-21 07:45 | NUR ---
bsr shared with on coming day shift, denied nausea during bsr but requested medication for nausea, call light in reach, 2L via nc, infusing ppn, a+o, note requesting all decisions on door noted and followed.
--- NOTE | 2019-02-21 16:13 | NUR ---
History, Chart, Medications and Allergies reviewed before start of procedure. Lungs clear T/O to Auscultation. Patient confirms NPO status and agrees with scheduled surgery.
--- NOTE | 2019-02-21 18:14 | NUR ---
REPORT/TRANSFER THIS RN CALLED REPORT TO LAURENCE MACIAS ON SURGICAL FLOOR. PT WILL BE TRANSFERRED TO ROOM 230 FROM OR. PT'S BELONGINGS WILL BE TAKE TO ROOM 230.
--- NOTE | 2019-02-21 19:10 | NUR ---
1910: PT ARRIVES TO ROOM 230 VIA BED FROM PACU S/P PALLIATIVE SURGICAL INTERVENTION UNSUCCESFUL WITH FAMILY AT BEDSIDE. PT APPEARS DROWSY BUT ALERT AND APPROPRIATE. POSITIONED ONTO LEFT SIDE AND PROPPED WITH PILLOWS FOR COMFORT, VSS, AFEBRILE. ICE CHIPS PLACED ON BEDSIDE TABLE. SCD'S TO BLE AND CALL LIGHT PLACED IN REACH.
--- NOTE | 2019-02-21 19:48 | NUR ---
1948: PT'S FAMILY REQUEST THAT THEY BE PRESENT FOR ALL PHYSICIAN AND PALLIATIVE CARE CONSULTS AND CONTACT WITH PT R/T TO HER MEMORY LOSS AND PREVIOUS INCONSISTENCIES WITH COMMUNICATION. PT IS AGREEABLE TO PLAN AND SIGN IS HUNG IN ROOM FOR COORDINATION OF CARE AND TO KEEP PT ROOM DOOR CLOSED.
[2019-02-22 04:29] LABS: Magnesium, Blood 1.9 mg/dL (1.6-2.4); Phosphorus, Blood 3.7 mg/dL (2.5-4.9)
--- NOTE | 2019-02-22 05:38 | NUR ---
SUMMARY: POD 1 EXPLORATORY LAP WITH PLEUREX DRAIN PLACEMENT BY DR. AMANDA FOR ABDOMINAL AND COLON CARCINOMAS, LARGE BOWEL OBSTRUCTION AND MALIGNANT ASCITES. VSS, AFEBRILE, 2L O2 VIA NC. PT REMAINS PLEASANT AND USES CALL LIGHT APPROPRIATELY. UP TO VOID MULTIPLE TIMES AND TOLERATING SMALL SIPS OF WATER OR ICE CHIPS. PREFERS MEDICATIONS WITH PUDDING. MEDICATED X1 FOR NAUSEA POST-OP WITH ZOFRAN. PAIN WELL CONTROLLED WITH 10MG ROXICODONE AND IV FENTANYL. PALLIATIVE CARE CONSULT THIS MORNING. FAMILY TO BE PRESENT FOR ALL MEDICAL INFORMATION AND DECISION MAKING MEETINGS AND STATES THEY WILL ARRIVE AT 0800 THIS AM.
--- NOTE | 2019-02-22 13:11 | NUR ---
PALLIATIVE CARE RN CALLED AT THIS TIME TO COME SPEAK WITH PT AND PT FAMILY.
--- NOTE | 2019-02-22 14:19 | NUR ---
palliative care and lead care manager in to see pt
--- NOTE | 2019-02-22 15:18 | NUR ---
2 TAB ORAL OXY GIVEN MANUFACTURING SOFTWARE ENGINEER REMOVED 600 ML FROM PLEUROVAC PAIN 11/30
--- NOTE | 2019-02-22 19:50 | NUR ---
PT IS POD1 EXPLORATORY LAP. NO ACUTE CHANGE TODAY. VSS, PT A/O. MANY FAMILY MEMBER CAME BY TO SEE PT. PT MEDICATED FOR PAIN/NAUSEA X1. ABLE TO TOLERATE SMALL SIPS OF LIQUID. PALLIATIVE CARE RN WORKED WITH PT AND EDUCATED FAMILY ABOUT PLEURX DRAIN. SURGICAL SITES WNL. PT WORKED WITH PHYSICAL THERAPY AND GETS UP TO COMMODE SBA. PLAN IS HOME ON HOSPICE, PT AND FAMILY AWARE OF CARE PLAN. REPORT GIVEN TO MORENO DANG.
--- NOTE | 2019-02-23 06:26 | NUR ---
SHIFT SUMMARY PT POD#2. AAOX4. DISCOMFORT CONTROLLED WITH 10MG ROXICODONE X1 THIS AM, NO NAUSEA/EMESIS. PT SBA UP TO BSC, TOLERATES WELL. NO ACUTE CHANGES THIS SHIFT. DRAIN TO ABD WITH DRESSING D/C/I. PT RESTED WELL T/O NIGHT. CALL LIGHT IN REACH + BED ALARM ON FOR SAFETY.
[2019-02-23] MEDS ORDERED: Percocet 5-3251 EACH PO (11:19)
[2019-02-23] MEDS ORDERED: NYSTRITC TOP (11:21)
[2019-02-23] MEDS ORDERED: ONDA8 PO (11:22)
[2019-02-23] MEDS ORDERED: SENN187 PO (11:23)
--- NOTE | 2019-02-23 12:05 | NUR ---
SHIFT SUMMARY PT A&OX4, VSS, LEFT FLOOR VIA WC WITH FAMILY, TO GO HOME, WITH ALL PERSONAL POSSESSIONS, INCLUDING DISCHARGE PACKET AND 1 NARC SCRIPT; OTHER SCRIPTS FAXED TO [employer]. DISCHARGE INSTRUCTIONS PROVIDED. PT AND FAMILY REP UNDERSTANDING THOSE INSTRUCTIONS. HOSPICE NURSE TO MEET FAMILY AT HOME TODAY. FAMILY HAS BEEN IN DIRECT CONTACT WITH HOSPICE. DONTA GROSS.
--- NOTE | 2019-03-06 12:30 | NUR ---
ORDER CORRECTION: ORDER RECIEVED FROM DR ZACH WOODALL FOR ULTRASOUND GUIDED PARACENTESIS, METOPROLO AND DIETITIAN CONSULTATION ON 02/19/19 AT 1116 UPDATED AT THIS TIME
== END 2019-02-23 12:01 | disposition hospice, home (50) | DRG 374 ==
LOC: ER 05:31 → MEDS 08:32 → SURS 09:05 → MEDS 09:05 → SURS 02-21 15:49
PROVIDERS: Emergency Medicine; Family Medicine; Internal Medicine Gastroenterology; Student in an Organized Health Care Education/Training Program; ADMIT Family Medicine
PROC: 0W9G3ZZ Drainage of Peritoneal Cavity, Percutaneous Approach (ICD-10-PCS; 2019-02-13)
PROC: 0DDP8ZX Extraction of Rectum, Via Natural or Artificial Opening Endoscopic, Diagnostic (ICD-10-PCS; 2019-02-16)
PROC: 0DD98ZX Extraction of Duodenum, Via Natural or Artificial Opening Endoscopic, Diagnostic (ICD-10-PCS; principal; 2019-02-16 08:00)
PROC: 0DD68ZX Extraction of Stomach, Via Natural or Artificial Opening Endoscopic, Diagnostic (ICD-10-PCS; 2019-02-16 08:00)
PROC: 0DDA8ZX Extraction of Jejunum, Via Natural or Artificial Opening Endoscopic, Diagnostic (ICD-10-PCS; 2019-02-16 08:00)
PROC: 0D9W40Z Drainage of Peritoneum with Drainage Device, Percutaneous Endoscopic Approach (ICD-10-PCS; 2019-02-21)
DX: C18.9 Malignant neoplasm of colon, unspecified (principal); J69.0 Pneumonitis due to inhalation of food and vomit; J96.01 Acute respiratory failure with hypoxia; R18.8 Other ascites; K22.10 Ulcer of esophagus without bleeding; R18.0 Malignant ascites; F32.9 Major depressive disorder, single episode, unspecified; E78.5 Hyperlipidemia, unspecified; Z90.49 Acquired absence of other specified parts of digestive tract; Z92.21 Personal history of antineoplastic chemotherapy; Z85.00 Personal history of malignant neoplasm of unspecified digestive organ; E03.9 Hypothyroidism, unspecified; J30.9 Allergic rhinitis, unspecified; E87.6 Hypokalemia; Z66 Do not resuscitate; E86.9 Volume depletion, unspecified; R19.7 Diarrhea, unspecified; D47.3 Essential (hemorrhagic) thrombocythemia; Z85.828 Personal history of other malignant neoplasm of skin; R62.7 Adult failure to thrive; Z68.22 Body mass index [BMI] 22.0-22.9, adult
CPT/HCPCS: 36415; 49083; 71045; 74018; 74177; 76705; 80048; 80053; 80069; 81001; 82042; 82140; 82150; 82378; 82947; 83605; 83615; 83690; 83735; 83880; 84100; 84145; 84157; 84439; 84443; 84478; 84481; 84484; 85025; 85060; 85610; 85730; 86850; 86900; 86901; 87070; 87086; 87205; 88108; 88184; 88185; 88305; 88341; 88342; 89051; 93005; 93010; 93306; 96365; 96366; 96368; 96375; 96376; 97110; 97116; 97161; 97530; 99285-25; C1729; C9113; J0456; J0690; J0696; J1100; J1170; J1650; J1885; J2370; J2405; J2543; J2704; J2710; J2765; J3010; J3480; J7030; J7050; J7060; J7120; Q0167; Q9967